=== PATIENT | male | born 1945 | race Caucasian/White ===

== ENCOUNTER 2017-06-01 12:52 | Inpatient (IN) | payer OTHER ==
[~2017-06-01] VITALS: Ht 177.8 cm; Wt 122.7 kg
--- NOTE | ~2017-06-01 | P ---
Formerly [facility] [place] [address] PROCEDURE REPORT Name: DIMAS SANCHES Room #: 203-P [facility] IN M.R.#: [id number] Admission: 06/01/17 Attend Phys: Larry Kimbrough MD, Discharge: 06/05/17 Date of : 41 Report #: [id number] THIS REPORT FOR: //name// CC: Larry Kimbrough MD [facility] Dat Ho MD BRIEF HISTORY: The patient is a 72-year-old male with evidence of upper GI bleeding and need for blood transfusions. He has been on Xarelto, but has been off for 48 hours. PREOPERATIVE DIAGNOSIS: Upper gastrointestinal bleeding, on Xarelto. POSTOPERATIVE DIAGNOSES: 1. Grade A esophagitis. 2. Mild diffuse gastritis without ulcer. 3. Small hiatus hernia. MEDICATIONS: Deep sedation with propofol per Anesthesia. SPECIMEN: 1. Small bowel biopsies to rule out celiac disease. 2. Biopsies of gastritis. ESTIMATED BLOOD LOSS: 3 mL. PROCEDURE: EGD with biopsy. FINDINGS: Prior to propofol sedation, procedure of upper endoscopy discussed with the patient with all potential risks and its complications. He indicates he understands and desires to proceed. DESCRIPTION OF PROCEDURE: With the patient in left lateral decubitus position, the Fuji video endoscope was inserted in the cervical esophagus under direct vision without difficulty. Examination of this organ through its entire length revealed normal esophageal mucosa down to the squamocolumnar junction. Squamocolumnar junction was inspected. It was intact. He was noted to have a moderate Schatzki ring, which was intermittently seen. He was also noted to have several erosions of squamocolumnar junction consistent with a grade A erosive esophagitis. There was no evidence of Jefferson mucosa. The scope was advanced into the stomach, which was examined on end view as well as retroflexed views. He had a diffuse gastritis. No ulcers or erosions were seen. There was no blood seen in the stomach. Active bleeding lesions were not seen. Potential sources of blood loss were not identified. Upon retroflexion, no mass lesions were seen. The pylorus was unremarkable. Duodenal bulb was unremarkable. Duodenal sweep down to the third portion was unremarkable. Multiple small bowel [address] [address] PROCEDURE REPORT Name: DIMAS SANCHES J Room #: 203-P DIS IN M.R.#: [id number] Admission: 06/01/17 Attend Phys: Larry Kimbrough MD, Discharge: 06/05/17 Date of : 41 Report #: [id number] biopsies were obtained to evaluate for celiac disease. At that point, scope was withdrawn and careful circumferential views confirmed the above finding. The patient tolerated the procedure well. Biopsies obtained of the gastritis. In addition, I might point out a trivial sliding type hiatus hernia was seen as well. DISPOSITION: Source of bleeding not identified. We will follow up on biopsies. Proceed with colonoscopy at this time. Actively bleeding lesions were not seen. Schatzki ring was identified. He was dilated with passage of 50-Swedish Pena dilator without difficulty. <ELECTRONICALLY SIGNED> By: Deon Hayes MD 06/07/17 1517 1313 0521 Deon Hayes MD /nt
--- NOTE | ~2017-06-01 | EKG ---
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: GR : [id number] Requested By: Larry Kimbrough Order Number: [id number] MD: Yordy Cruz Measurements Intervals [place] Rate: 77 P: 230 [place]: 195 QRS: 32 QRSD: 103 T: 21 QT: 429 QTc: 486 Interpretive Statements Atypical atrial flutter with a controlled ventricular response Abnormal R-wave progression, early transition Borderline prolonged QT interval Baseline wander in lead(s) V1 Compared to ECG 01/06/2009 12:00:24 Sinus rhythm and is no longer present Electronically Signed On 06-03-2017 8:25:11 CDT by Yordy Cruz [email or web address] <ELECTRONICALLY SIGNED> By: Yordy Cruz MD, [facility] 06/03/1725 9 9 Yordy Cruz MD, [facility] /EPI
--- NOTE | ~2017-06-01 | P ---
[facility] [place] [address] PROCEDURE REPORT Name: DIMAS SANCHES Room #: 203-P [facility] IN M.R.#: [id number] Admission: 06/01/17 Attend Phys: Larry Kimbrough MD, Discharge: 06/05/17 Date of : 41 Report #: [id number] THIS REPORT FOR: //name// CC: Larry Kimbrough MD [facility] Dat Ho MD BRIEF HISTORY: The patient is a 72-year-old male who presented with GI bleeding on Xarelto, which he takes for atrial fibrillation. There is also concern that he has coronary artery disease. PREOPERATIVE DIAGNOSIS: Gastrointestinal bleeding on Xarelto. POSTOPERATIVE DIAGNOSES: 1. Moderately severe left-sided diverticulosis coli. 2. Bleeding internal hemorrhoids. MEDICATIONS: Deep sedation with propofol per anesthesia. SPECIMEN: None. ESTIMATED BLOOD LOSS: None. PROCEDURE: Colonoscopy to cecum. FINDINGS: Prior to propofol sedation, procedure of colonoscopy discussed with the patient as well as potential risks and complications. He indicates he understands and desires to proceed. DESCRIPTION OF PROCEDURE: With the patient in the left lateral decubitus position, digital examination was completed which revealed no abnormalities. Subsequently, Ordoro video colonoscope was introduced in the rectum, advanced under direct vision to the cecum. It was done with minimal difficulty. The cecum was identified by the ileocecal valve and the appendiceal orifice. I could see the ileocecal valve and actually saw the ileocecal valve opened. There was some darkish material in the mouth of the ileocecal valve, but I could not deeply intubate the ileocecal valve because of looping of the scope. At that point, the scope was slowly withdrawn and careful circumferential views obtained. As we withdrew the scope, he was noted to have some blackish liquidish material in pools around the colon as well as coating the mucosa. We irrigated, flushed and suctioned as much as possible. Not all this material could be removed. Overall, reasonably a fairly good prep was obtained although there were some minor limitations about the colon. Within these limitations, no mucosal abnormalities were seen. No blood was seen. Again, the retained material was a very dark green to blackish in color. Bright red blood was not seen. No ulcers were seen. No inflammatory changes were seen. No neoplastic [address] [address] PROCEDURE REPORT Name: DIMAS SANCHES Room #: 203-P DIS IN M.R.#: [id number] Admission: 06/01/17 Attend Phys: Larry Kimbrough MD, Discharge: 06/05/17 Date of : 41 Report #: [id number] lesions were seen. Vascular ectasias were not seen within these limitations. As we withdrew the scope in the left colon in particular the sigmoid colon, there was fairly extensive sigmoid diverticular disease ____ endoscopic evidence of diverticulitis. No additional abnormalities were seen. The scope was withdrawn in the rectum and no abnormalities were seen. Upon retroflexion, moderate internal hemorrhoids were seen. The scope was withdrawn. The patient tolerated the procedure well. DISPOSITION: The patient with findings as noted above. An obvious bleeding lesion was not seen. The blackish color suggests a more proximal site, possibly the proximal colon or small bowel or upper GI tract. Please also see upper endoscopy report as well for details. At this point in time, we do not find evidence of active bleeding. If he has further bleeding, consider a nuclear medicine bleeding scan for further evaluation. <ELECTRONICALLY SIGNED> By: Deon Hayes MD 06/07/17 1517 1352 0453 Deon Hayes MD /nt
--- NOTE | ~2017-06-01 | H ---
[facility] [place] [address] HISTORY AND PHYSICAL Name: DIMAS SANCHES Room #: 203-P ADM IN M.R.#: [id number] Admission: 06/01/17 Attend Phys: Larry Kimbrough MD, Discharge: Date of : 41 Report #: [id number] THIS REPORT FOR: //name// CC: Larry Ho DATE OF SERVICE: 06/01/2017 HISTORY OF PRESENT ILLNESS: The patient is a 72-year-old male. He presented to the office with some recurrent weakness, some chest pain and pressure. He was supposed to have a stress test, but had been feeling poorly for the last couple of weeks with bilateral shoulder pain and chest pain. Also noted, he had some red bowel movements, bright red blood a month or so ago, but this resolved. However, the last week, he has been having some dark tarry stools and is on anticoagulation for atrial fibrillation. He comes in and he is quite pale appearing. He is not in distress, but does not feel well. The echo Doppler revealed an anteroseptal apical hypokinetic segment, which was mild and small, but this was a new finding. Moderate mitral and tricuspid regurgitation. The EF was in the 50% range. He has been compliant with medications. He has been on albuterol, amlodipine 5, baby aspirin, atorvastatin 40, gabapentin, glipizide 10, insulin, magnesium, levothyroxine, Bystolic 10, vitamin B6, Xarelto 20, which he did take this morning, Demadex 20, and WelChol 2 tablets twice a day. PAST MEDICAL HISTORY: Positive for the paroxysmal AFib, hypertension, hypercholesterolemia, COPD, renal cell carcinoma status post nephrectomy, remote stroke, hernia repair, thoracotomy and VATS for left thoracotomy wedge resection, tonsillectomy. SOCIAL HISTORY: Prior tobacco user. Two cans of beer a week. . He is retired. ALLERGIES: PHENOL AND IODINE. REVIEW OF SYSTEMS: Negative except for the progressive shortness of breath. PHYSICAL EXAMINATION: GENERAL: He is pale appearing, although not in distress. VITAL SIGNS: Blood pressure was 100/55, pulse is 80s. HEENT: Eyes reveal xanthelasmas. Pharynx is clear. NECK: Shows preserved upstrokes without JVD or bruits. LUNGS: Clear. CARDIOVASCULAR: Regular rate and rhythm, S1, S2. There is a holosystolic murmur at the apex. ABDOMEN: Slight tender in the epigastric. EXTREMITIES: Reveal no edema. Pulse is diminished. NEUROLOGIC: Nonfocal. [address] [address] HISTORY AND PHYSICAL Name: DIMAS SANCHES Room #: 203-P [facility] IN M.R.#: [id number] Admission: 06/01/17 Attend Phys: Larry Kimbrough MD, Discharge: Date of : 41 Report #: [id number] SKIN: Warm and dry without xanthoma or ulcer. MUSCULOSKELETAL: No gross joint deformity. ASSESSMENT: 1. Suspected anemia/gastrointestinal bleed with melenic stools. 2. Coronary artery disease with apparent new wall motion abnormality. 3. Mild ischemic cardiomyopathy, anteroapical septal hypokinetic segment, new. 4. Hypertension. 5. Diabetes. 6. Hypercholesterolemia. RECOMMENDATIONS AND PLAN: obviously holding the novel agent oral anticoagulant. GI consult. Telemetry, troponin and will follow. He is obviously transfusion if significantly anemic. He will be a direct admit to the CCU. Risks, benefits, alternatives discussed with the patient and his . <ELECTRONICALLY SIGNED> By: Larry Kimbrough MD, FACC 06/03/17 1305 12 2136 Larry Kimbrough MD, FACC /nt
[~2017-06-01 12:52] MED LIST: ALLOPURINOL 30300 M2 PO; ASA81BEC PO; BENICAR20 MG PO; BENICAR40 MG PO; BYSTOLIC 5 MG5 M1 PO; BYSTOLIC10 MG PO; CENTRUM SILVER1 EAC4 PO; COLACE100 MG PO; COUMADIN 5 MG TA5 M1 PO; HYDROCHLOROTHIA25 M2 PO; HYTRIN 5 M5 MG/1 CAP PO; LISINOPRIL20 MG PO; NIACIN 500 MG500 M1 PO; NIACIN500 MG PO; NORCO 5-325 TA1 EACH PO; PERCOCET PO; SINGULAIR 10 MG10 M1 PO; SPIRIVA INH; TERAZOSIN HCL10 MG PO; VENTOLIN HFA 1818 GM INH; WELCHOL 625 MG625 M1 PO; [UNRECOGNIZED DRUG - OTHER] PO
[2017-06-01 14:11] LABS: HEMATOCRIT 20.8 % (42.0-52.0); HEMOGLOBIN 6.8 gm/dL (14.0-18.0); MCH 32.6 pg (26.0-34.0); MCHC 32.9 g/dL (28.0-37.0); RBC 2.1 mil/uL (4.50-6.00); WBC 9.5 thou/uL (4.0-11.0)
[2017-06-01 14:25] LABS: CALCIUM 8.8 mg/dL (8.5-10.1); CREATININE 1.5 mg/dL (0.7-1.3); POTASSIUM 4.3 mmol/L (3.5-5.1)
[2017-06-01 14:31] LABS: ALBUMIN 2.9 g/dL (3.4-5.0); TOTAL BILIRUBIN 0.3 mg/dL (<0.1-1.0); TROPONIN-I 0.56 ng/mL (<0.06)
[2017-06-01 14:48] VITALS: BP 99/55
[2017-06-01 17:53] VITALS: BP 103/51; BP 98/60
[2017-06-01 19:41] VITALS: BP 100/55
[2017-06-01 21:06] VITALS: BP 103/51; BP 119/68; BP 121/57
[2017-06-02 00:16] VITALS: BP 119/68
[2017-06-02 02:38] LABS: HEMATOCRIT 26.4 % (42.0-52.0)
[2017-06-02 02:43] LABS: HEMOGLOBIN 8.9 gm/dL (14.0-18.0)
[2017-06-02 04:32] LABS: HEMATOCRIT 26.9 % (42.0-52.0)
[2017-06-02 05:16] VITALS: BP 119/70
[2017-06-02 08:15] VITALS: BP 120/68
[2017-06-02 16:20] LABS: HEMOGLOBIN 8.6 gm/dL (14.0-18.0)
[2017-06-02 16:33] LABS: INR 1.1; PROTIME 11.2 Seconds (9.3-11.4)
[2017-06-02 17:22] VITALS: BP 136/64
[2017-06-02 17:24] VITALS: BP 104/75
[2017-06-02 19:52] VITALS: BP 145/61
[2017-06-03 04:31] VITALS: BP 130/68
[2017-06-03 07:33] VITALS: BP 132/77
[2017-06-03 07:53] LABS: HEMATOCRIT 24.9 % (42.0-52.0); HEMOGLOBIN 8.4 gm/dL (14.0-18.0)
[2017-06-03 11:10] VITALS: BP 118/68
[2017-06-03 14:34] VITALS: BP 119/63
[2017-06-03 19:55] VITALS: BP 126/68
[2017-06-04 04:36] VITALS: BP 145/73
[2017-06-04 04:49] LABS: HEMATOCRIT 25.7 % (42.0-52.0); HEMOGLOBIN 8.6 gm/dL (14.0-18.0); MCH 32.5 pg (26.0-34.0); MCHC 33.5 g/dL (28.0-37.0); MCV 97.2 fL (80.0-100.0); RBC 2.65 mil/uL (4.50-6.00); RDW 16.4 % (10.5-14.5); WBC 9.1 thou/uL (4.0-11.0)
[2017-06-04 09:02] VITALS: BP 126/67
[2017-06-04 12:33] VITALS: BP 123/73
[2017-06-04 16:05] VITALS: BP 108/57
[2017-06-04 19:15] VITALS: BP 125/60
[2017-06-04 23:29] VITALS: BP 120/65
[2017-06-05 03:47] VITALS: BP 126/65
[2017-06-05 08:00] VITALS: BP 139/88
[2017-06-05 11:22] VITALS: BP 115/70
[2017-06-05 14:03] VITALS: BP 115/70
== END 2017-06-05 14:25 | disposition home or self-care (01) | DRG 281 ==
LOC: 2N 12:52
PROVIDERS: Internal Medicine Cardiovascular Disease; Internal Medicine Gastroenterology; Nurse Practitioner; Specialist
DX: I21.4 Non-ST elevation (NSTEMI) myocardial infarction (principal); K92.2 Gastrointestinal hemorrhage, unspecified; D64.9 Anemia, unspecified; I48.0 Paroxysmal atrial fibrillation; I10 Essential (primary) hypertension; K20.9 Esophagitis, unspecified; K44.9 Diaphragmatic hernia without obstruction or gangrene; K64.8 Other hemorrhoids; E78.00 Pure hypercholesterolemia, unspecified; K22.2 Esophageal obstruction; N40.0 Benign prostatic hyperplasia without lower urinary tract symptoms; K29.70 Gastritis, unspecified, without bleeding; K57.30 Diverticulosis of large intestine without perforation or abscess without bleeding; M10.9 Gout, unspecified; J44.9 Chronic obstructive pulmonary disease, unspecified; I25.10 Atherosclerotic heart disease of native coronary artery without angina pectoris; I25.5 Ischemic cardiomyopathy; E11.9 Type 2 diabetes mellitus without complications; E66.9 Obesity, unspecified; Z68.38 Body mass index [BMI] 38.0-38.9, adult; Z86.73 Personal history of transient ischemic attack (TIA), and cerebral infarction without residual deficits; Z87.891 Personal history of nicotine dependence; Z85.528 Personal history of other malignant neoplasm of kidney; Z85.118 Personal history of other malignant neoplasm of bronchus and lung; Z85.51 Personal history of malignant neoplasm of bladder; Z86.010 Personal history of colon polyps; Z90.5 Acquired absence of kidney; Z79.01 Long term (current) use of anticoagulants; Z79.899 Other long term (current) drug therapy; Z88.8 Allergy status to other drugs, medicaments and biological substances; Z91.041 Radiographic dye allergy status
CPT/HCPCS: 10081; 62110; 62900

== ENCOUNTER → 2017-12-14 | Outpatient (CLI) | payer OTHER | END | disposition home or self-care (01) | LOC: GI 06:33 | DX: D64.9 Anemia, unspecified (principal); I48.0 Paroxysmal atrial fibrillation; I10 Essential (primary) hypertension; E78.00 Pure hypercholesterolemia, unspecified; J44.9 Chronic obstructive pulmonary disease, unspecified; Z98.890 Other specified postprocedural states; Z79.899 Other long term (current) drug therapy; Z86.73 Personal history of transient ischemic attack (TIA), and cerebral infarction without residual deficits; Z79.891 Long term (current) use of opiate analgesic; Z79.82 Long term (current) use of aspirin; Z79.01 Long term (current) use of anticoagulants; Z91.041 Radiographic dye allergy status; Z87.891 Personal history of nicotine dependence; Z88.8 Allergy status to other drugs, medicaments and biological substances; Z85.528 Personal history of other malignant neoplasm of kidney; Z90.5 Acquired absence of kidney ==

== ENCOUNTER → 2019-10-29 | Outpatient (CLI) | payer OTHER | LOC: HYPER 13:52 | PROVIDERS: ATTEND Emergency Medicine | DX: E11.621 Type 2 diabetes mellitus with foot ulcer (principal); L97.512 Non-pressure chronic ulcer of other part of right foot with fat layer exposed; E11.21 Type 2 diabetes mellitus with diabetic nephropathy; E11.22 Type 2 diabetes mellitus with diabetic chronic kidney disease; I13.0 Hypertensive heart and chronic kidney disease with heart failure and stage 1 through stage 4 chronic kidney disease, or unspecified chronic kidney disease; N18.9 Chronic kidney disease, unspecified; I50.9 Heart failure, unspecified; E66.01 Morbid (severe) obesity due to excess calories; I48.91 Unspecified atrial fibrillation; I25.2 Old myocardial infarction; J43.9 Emphysema, unspecified; Z85.51 Personal history of malignant neoplasm of bladder; Z87.891 Personal history of nicotine dependence; Z68.38 Body mass index [BMI] 38.0-38.9, adult ==

== ENCOUNTER → 2019-11-07 | Outpatient (CLI) | payer OTHER | LOC: HYPER 13:28 | PROVIDERS: ATTEND Emergency Medicine | DX: E11.621 Type 2 diabetes mellitus with foot ulcer (principal); L97.512 Non-pressure chronic ulcer of other part of right foot with fat layer exposed; L84 Corns and callosities; E11.21 Type 2 diabetes mellitus with diabetic nephropathy; E11.22 Type 2 diabetes mellitus with diabetic chronic kidney disease; I13.0 Hypertensive heart and chronic kidney disease with heart failure and stage 1 through stage 4 chronic kidney disease, or unspecified chronic kidney disease; N18.9 Chronic kidney disease, unspecified; I50.9 Heart failure, unspecified; E66.01 Morbid (severe) obesity due to excess calories; I25.2 Old myocardial infarction; I48.91 Unspecified atrial fibrillation; J43.9 Emphysema, unspecified; Z87.891 Personal history of nicotine dependence; Z68.38 Body mass index [BMI] 38.0-38.9, adult; Z85.51 Personal history of malignant neoplasm of bladder ==

== ENCOUNTER → 2019-11-07 | Outpatient (CLI) | payer OTHER | LOC: SJCVCIMAG | PROVIDERS: ATTEND Internal Medicine Cardiovascular Disease | DX: I70.203 Unspecified atherosclerosis of native arteries of extremities, bilateral legs (principal); L97.818 Non-pressure chronic ulcer of other part of right lower leg with other specified severity; L97.828 Non-pressure chronic ulcer of other part of left lower leg with other specified severity; Z87.891 Personal history of nicotine dependence ==

== ENCOUNTER → 2019-11-14 | Outpatient (CLI) | payer OTHER ==
[~2019-11-14] VITALS: Ht 177.8 cm; Wt 125.2 kg
[~2019-11-14] MED LIST changes: +ALLOPURINOL 10100 M3 PO; +ELIQUIS5 MG PO; +LEVO-T100 MCG PO; +LIPITOR40 MG PO; +MAGNESIUM250 M1 PO; +NEURONTIN 300M300 M2 PO; +PROAIR HFA8.5 GM INH; +SILODOSIN8 MG PO; +STIOLTO RESPIMAT4 GM INH; +TORSEMIDE10 MG PO; +VALSARTAN320 MG PO; +WELCHOL 625 MG625 MG PO
[2019-11-14 07:36] VITALS: BP 168/78
[2019-11-14 07:46] LABS: HEMATOCRIT 38.6 % (42.0-52.0); HEMOGLOBIN 12.7 gm/dL (14.0-18.0); MCH 31.1 pg (26.0-34.0); MCV 94.3 fL (80.0-100.0); RBC 4.09 mil/uL (4.50-6.00); RDW 15.4 % (10.5-14.5)
[2019-11-14 08:12] LABS: CALCIUM 8.9 mg/dL (8.5-10.1); CREATININE 1.7 mg/dL (0.7-1.3); POTASSIUM 4.3 mmol/L (3.5-5.1)
== END | disposition home or self-care (01) ==
LOC: CATH 06:14
PROVIDERS: ATTEND Nuclear Medicine Nuclear Cardiology
DX: I70.238 Atherosclerosis of native arteries of right leg with ulceration of other part of lower leg (principal); L97.919 Non-pressure chronic ulcer of unspecified part of right lower leg with unspecified severity; I70.1 Atherosclerosis of renal artery; I10 Essential (primary) hypertension; E78.5 Hyperlipidemia, unspecified; I48.91 Unspecified atrial fibrillation; I25.2 Old myocardial infarction; G47.30 Sleep apnea, unspecified; J44.9 Chronic obstructive pulmonary disease, unspecified; Z87.891 Personal history of nicotine dependence; Z98.890 Other specified postprocedural states; Z79.899 Other long term (current) drug therapy; Z87.442 Personal history of urinary calculi; Z85.528 Personal history of other malignant neoplasm of kidney; Z85.51 Personal history of malignant neoplasm of bladder; Z90.5 Acquired absence of kidney; Z79.4 Long term (current) use of insulin; Z91.041 Radiographic dye allergy status; Z79.01 Long term (current) use of anticoagulants

== ENCOUNTER → 2019-11-22 | Outpatient (CLI) | payer OTHER | LOC: HYPER 14:01 | PROVIDERS: ATTEND Emergency Medicine | DX: T69.022D Immersion foot, left foot, subsequent encounter (principal); E11.621 Type 2 diabetes mellitus with foot ulcer; L97.512 Non-pressure chronic ulcer of other part of right foot with fat layer exposed; E11.42 Type 2 diabetes mellitus with diabetic polyneuropathy; L84 Corns and callosities; L50.0 Allergic urticaria; E11.22 Type 2 diabetes mellitus with diabetic chronic kidney disease; I13.0 Hypertensive heart and chronic kidney disease with heart failure and stage 1 through stage 4 chronic kidney disease, or unspecified chronic kidney disease; I50.9 Heart failure, unspecified; N18.9 Chronic kidney disease, unspecified; I48.91 Unspecified atrial fibrillation; J43.9 Emphysema, unspecified; I25.2 Old myocardial infarction; Z85.51 Personal history of malignant neoplasm of bladder; Z87.891 Personal history of nicotine dependence; X31.XXXD Exposure to excessive natural cold, subsequent encounter; Z79.01 Long term (current) use of anticoagulants ==

== ENCOUNTER → 2019-12-14 | Outpatient (CLI) | payer OTHER | LOC: SJCVCIMAG 07:30 | PROVIDERS: ATTEND Internal Medicine Cardiovascular Disease | DX: I08.8 Other rheumatic multiple valve diseases (principal); I11.9 Hypertensive heart disease without heart failure; I49.3 Ventricular premature depolarization; I25.10 Atherosclerotic heart disease of native coronary artery without angina pectoris; I48.0 Paroxysmal atrial fibrillation; Z87.891 Personal history of nicotine dependence ==

== ENCOUNTER → 2019-12-18 | Outpatient (CLI) | payer OTHER | LOC: HYPER 10:39 | PROVIDERS: ATTEND Emergency Medicine | DX: E11.621 Type 2 diabetes mellitus with foot ulcer (principal); L97.512 Non-pressure chronic ulcer of other part of right foot with fat layer exposed; L97.521 Non-pressure chronic ulcer of other part of left foot limited to breakdown of skin; E11.42 Type 2 diabetes mellitus with diabetic polyneuropathy; L84 Corns and callosities; E11.22 Type 2 diabetes mellitus with diabetic chronic kidney disease; I13.0 Hypertensive heart and chronic kidney disease with heart failure and stage 1 through stage 4 chronic kidney disease, or unspecified chronic kidney disease; I50.9 Heart failure, unspecified; N18.9 Chronic kidney disease, unspecified; I48.91 Unspecified atrial fibrillation; J43.9 Emphysema, unspecified; I25.2 Old myocardial infarction; Z85.51 Personal history of malignant neoplasm of bladder; Z87.891 Personal history of nicotine dependence; Z79.01 Long term (current) use of anticoagulants; Z79.82 Long term (current) use of aspirin ==

== ENCOUNTER → 2019-12-28 | Outpatient (CLI) | payer OTHER | LOC: RAD 14:18 | PROVIDERS: ATTEND Emergency Medicine | DX: L97.512 Non-pressure chronic ulcer of other part of right foot with fat layer exposed (principal) ==

== ENCOUNTER → 2020-01-01 | Outpatient (CLI) | payer OTHER | LOC: HYPER 10:59 | PROVIDERS: ATTEND Emergency Medicine | DX: E11.621 Type 2 diabetes mellitus with foot ulcer (principal); L97.512 Non-pressure chronic ulcer of other part of right foot with fat layer exposed; S80.821A Blister (nonthermal), right lower leg, initial encounter; E11.40 Type 2 diabetes mellitus with diabetic neuropathy, unspecified; E11.22 Type 2 diabetes mellitus with diabetic chronic kidney disease; I13.0 Hypertensive heart and chronic kidney disease with heart failure and stage 1 through stage 4 chronic kidney disease, or unspecified chronic kidney disease; I50.9 Heart failure, unspecified; N18.9 Chronic kidney disease, unspecified; J43.9 Emphysema, unspecified; L84 Corns and callosities; I25.2 Old myocardial infarction; R60.9 Edema, unspecified; I48.91 Unspecified atrial fibrillation; Z85.51 Personal history of malignant neoplasm of bladder; Z87.891 Personal history of nicotine dependence; Z79.01 Long term (current) use of anticoagulants; Z79.82 Long term (current) use of aspirin; X58.XXXA Exposure to other specified factors, initial encounter; Y93.89 Activity, other specified; Y92.89 Other specified places as the place of occurrence of the external cause; Y99.8 Other external cause status ==

== ENCOUNTER → 2020-01-08 | Outpatient (CLI) | payer OTHER | LOC: HYPER 10:53 | PROVIDERS: ATTEND Emergency Medicine | DX: E11.621 Type 2 diabetes mellitus with foot ulcer (principal); L97.512 Non-pressure chronic ulcer of other part of right foot with fat layer exposed; S80.821D Blister (nonthermal), right lower leg, subsequent encounter; L84 Corns and callosities; E11.40 Type 2 diabetes mellitus with diabetic neuropathy, unspecified; E11.21 Type 2 diabetes mellitus with diabetic nephropathy; E11.22 Type 2 diabetes mellitus with diabetic chronic kidney disease; I13.0 Hypertensive heart and chronic kidney disease with heart failure and stage 1 through stage 4 chronic kidney disease, or unspecified chronic kidney disease; I50.9 Heart failure, unspecified; N18.9 Chronic kidney disease, unspecified; E66.01 Morbid (severe) obesity due to excess calories; J43.9 Emphysema, unspecified; I25.2 Old myocardial infarction; R60.9 Edema, unspecified; I48.91 Unspecified atrial fibrillation; Z85.51 Personal history of malignant neoplasm of bladder; Z87.891 Personal history of nicotine dependence; Z68.38 Body mass index [BMI] 38.0-38.9, adult; X58.XXXD Exposure to other specified factors, subsequent encounter ==

== ENCOUNTER → 2020-01-17 | Outpatient (CLI) | payer OTHER | LOC: SJCVCIMAG 08:08 | PROVIDERS: ATTEND Nuclear Medicine Nuclear Cardiology | DX: I65.23 Occlusion and stenosis of bilateral carotid arteries (principal); I70.202 Unspecified atherosclerosis of native arteries of extremities, left leg; Z87.891 Personal history of nicotine dependence ==

== ENCOUNTER → 2020-01-22 | Outpatient (CLI) | payer OTHER | LOC: HYPER 10:55 | PROVIDERS: ATTEND Emergency Medicine | DX: E11.621 Type 2 diabetes mellitus with foot ulcer (principal); L97.512 Non-pressure chronic ulcer of other part of right foot with fat layer exposed; S80.821D Blister (nonthermal), right lower leg, subsequent encounter; E11.42 Type 2 diabetes mellitus with diabetic polyneuropathy; L84 Corns and callosities; R60.9 Edema, unspecified; I48.91 Unspecified atrial fibrillation; E11.22 Type 2 diabetes mellitus with diabetic chronic kidney disease; I13.0 Hypertensive heart and chronic kidney disease with heart failure and stage 1 through stage 4 chronic kidney disease, or unspecified chronic kidney disease; I50.9 Heart failure, unspecified; N18.9 Chronic kidney disease, unspecified; J43.9 Emphysema, unspecified; I25.2 Old myocardial infarction; Z85.51 Personal history of malignant neoplasm of bladder; Z87.891 Personal history of nicotine dependence; Z79.82 Long term (current) use of aspirin; Z79.01 Long term (current) use of anticoagulants; X58.XXXD Exposure to other specified factors, subsequent encounter ==

== ENCOUNTER → 2020-02-19 | Outpatient (CLI) | payer OTHER | LOC: HYPER 10:54 | PROVIDERS: ATTEND Emergency Medicine | DX: E11.621 Type 2 diabetes mellitus with foot ulcer (principal); L97.512 Non-pressure chronic ulcer of other part of right foot with fat layer exposed; S80.821D Blister (nonthermal), right lower leg, subsequent encounter; L84 Corns and callosities; E11.42 Type 2 diabetes mellitus with diabetic polyneuropathy; E11.22 Type 2 diabetes mellitus with diabetic chronic kidney disease; I13.0 Hypertensive heart and chronic kidney disease with heart failure and stage 1 through stage 4 chronic kidney disease, or unspecified chronic kidney disease; I50.9 Heart failure, unspecified; N18.9 Chronic kidney disease, unspecified; E11.21 Type 2 diabetes mellitus with diabetic nephropathy; E66.01 Morbid (severe) obesity due to excess calories; R60.9 Edema, unspecified; I48.91 Unspecified atrial fibrillation; I87.2 Venous insufficiency (chronic) (peripheral); I25.2 Old myocardial infarction; J43.9 Emphysema, unspecified; Z85.51 Personal history of malignant neoplasm of bladder; Z68.38 Body mass index [BMI] 38.0-38.9, adult; Z87.891 Personal history of nicotine dependence; Z79.82 Long term (current) use of aspirin; Z79.01 Long term (current) use of anticoagulants; X58.XXXD Exposure to other specified factors, subsequent encounter ==

== ENCOUNTER → 2020-03-19 | Outpatient (CLI) | payer OTHER | LOC: HYPER 10:41 | PROVIDERS: ATTEND Emergency Medicine | DX: E11.621 Type 2 diabetes mellitus with foot ulcer (principal); L97.512 Non-pressure chronic ulcer of other part of right foot with fat layer exposed; S80.821D Blister (nonthermal), right lower leg, subsequent encounter; L84 Corns and callosities; E11.42 Type 2 diabetes mellitus with diabetic polyneuropathy; E11.22 Type 2 diabetes mellitus with diabetic chronic kidney disease; I13.0 Hypertensive heart and chronic kidney disease with heart failure and stage 1 through stage 4 chronic kidney disease, or unspecified chronic kidney disease; I50.9 Heart failure, unspecified; N18.9 Chronic kidney disease, unspecified; E11.21 Type 2 diabetes mellitus with diabetic nephropathy; E66.01 Morbid (severe) obesity due to excess calories; R60.9 Edema, unspecified; I48.91 Unspecified atrial fibrillation; I87.2 Venous insufficiency (chronic) (peripheral); I25.2 Old myocardial infarction; J43.9 Emphysema, unspecified; Z85.51 Personal history of malignant neoplasm of bladder; Z68.38 Body mass index [BMI] 38.0-38.9, adult; Z87.891 Personal history of nicotine dependence; Z79.82 Long term (current) use of aspirin; Z79.01 Long term (current) use of anticoagulants; X58.XXXD Exposure to other specified factors, subsequent encounter ==

== ENCOUNTER → 2020-04-17 | Outpatient (CLI) | payer OTHER | LOC: HYPER 10:56 | PROVIDERS: ATTEND Emergency Medicine | DX: E11.621 Type 2 diabetes mellitus with foot ulcer (principal); L97.512 Non-pressure chronic ulcer of other part of right foot with fat layer exposed; S80.821D Blister (nonthermal), right lower leg, subsequent encounter; I87.2 Venous insufficiency (chronic) (peripheral); E11.40 Type 2 diabetes mellitus with diabetic neuropathy, unspecified; L84 Corns and callosities; R60.9 Edema, unspecified; I48.91 Unspecified atrial fibrillation; E11.22 Type 2 diabetes mellitus with diabetic chronic kidney disease; I13.0 Hypertensive heart and chronic kidney disease with heart failure and stage 1 through stage 4 chronic kidney disease, or unspecified chronic kidney disease; I50.9 Heart failure, unspecified; N18.9 Chronic kidney disease, unspecified; I25.2 Old myocardial infarction; J43.9 Emphysema, unspecified; E66.9 Obesity, unspecified; Z68.38 Body mass index [BMI] 38.0-38.9, adult; Z87.891 Personal history of nicotine dependence; Z85.51 Personal history of malignant neoplasm of bladder; Z79.82 Long term (current) use of aspirin; Z79.01 Long term (current) use of anticoagulants; X58.XXXD Exposure to other specified factors, subsequent encounter ==

== ENCOUNTER → 2020-05-15 | Outpatient (CLI) | payer OTHER | LOC: HYPER 09:09 | PROVIDERS: ATTEND Emergency Medicine | DX: E11.621 Type 2 diabetes mellitus with foot ulcer (principal); L97.512 Non-pressure chronic ulcer of other part of right foot with fat layer exposed; S80.821D Blister (nonthermal), right lower leg, subsequent encounter; I87.2 Venous insufficiency (chronic) (peripheral); L84 Corns and callosities; E11.40 Type 2 diabetes mellitus with diabetic neuropathy, unspecified; R60.9 Edema, unspecified; I48.91 Unspecified atrial fibrillation; E11.22 Type 2 diabetes mellitus with diabetic chronic kidney disease; I13.0 Hypertensive heart and chronic kidney disease with heart failure and stage 1 through stage 4 chronic kidney disease, or unspecified chronic kidney disease; I50.9 Heart failure, unspecified; N18.9 Chronic kidney disease, unspecified; E11.21 Type 2 diabetes mellitus with diabetic nephropathy; I25.2 Old myocardial infarction; J43.9 Emphysema, unspecified; E66.01 Morbid (severe) obesity due to excess calories; Z68.38 Body mass index [BMI] 38.0-38.9, adult; Z87.891 Personal history of nicotine dependence; Z85.51 Personal history of malignant neoplasm of bladder; Z79.82 Long term (current) use of aspirin; Z79.01 Long term (current) use of anticoagulants; X58.XXXD Exposure to other specified factors, subsequent encounter ==

== ENCOUNTER → 2020-06-17 | Outpatient (CLI) | payer OTHER | LOC: HYPER 08:51 | PROVIDERS: ATTEND Emergency Medicine | DX: E11.621 Type 2 diabetes mellitus with foot ulcer (principal); L97.512 Non-pressure chronic ulcer of other part of right foot with fat layer exposed; S81.811A Laceration without foreign body, right lower leg, initial encounter; S80.821D Blister (nonthermal), right lower leg, subsequent encounter; L84 Corns and callosities; I87.2 Venous insufficiency (chronic) (peripheral); E11.40 Type 2 diabetes mellitus with diabetic neuropathy, unspecified; R60.9 Edema, unspecified; I48.91 Unspecified atrial fibrillation; E11.22 Type 2 diabetes mellitus with diabetic chronic kidney disease; I13.0 Hypertensive heart and chronic kidney disease with heart failure and stage 1 through stage 4 chronic kidney disease, or unspecified chronic kidney disease; I50.9 Heart failure, unspecified; N18.9 Chronic kidney disease, unspecified; E11.21 Type 2 diabetes mellitus with diabetic nephropathy; I25.2 Old myocardial infarction; J43.9 Emphysema, unspecified; E66.01 Morbid (severe) obesity due to excess calories; Z68.38 Body mass index [BMI] 38.0-38.9, adult; Z87.891 Personal history of nicotine dependence; Z85.51 Personal history of malignant neoplasm of bladder; X58.XXXD Exposure to other specified factors, subsequent encounter; X58.XXXA Exposure to other specified factors, initial encounter; Y93.89 Activity, other specified; Y92.89 Other specified places as the place of occurrence of the external cause; Y99.8 Other external cause status ==

== ENCOUNTER → 2020-07-08 | Outpatient (CLI) | payer OTHER | LOC: SJCVCIMAG 09:06 | PROVIDERS: ATTEND Nuclear Medicine Nuclear Cardiology | DX: I70.202 Unspecified atherosclerosis of native arteries of extremities, left leg (principal) ==

== ENCOUNTER → 2020-07-16 | Outpatient (CLI) | payer OTHER | LOC: HYPER 08:02 | PROVIDERS: ATTEND Emergency Medicine | DX: E11.621 Type 2 diabetes mellitus with foot ulcer (principal); L97.512 Non-pressure chronic ulcer of other part of right foot with fat layer exposed; S80.821D Blister (nonthermal), right lower leg, subsequent encounter; L84 Corns and callosities; I87.2 Venous insufficiency (chronic) (peripheral); E11.40 Type 2 diabetes mellitus with diabetic neuropathy, unspecified; R60.9 Edema, unspecified; I48.91 Unspecified atrial fibrillation; E11.22 Type 2 diabetes mellitus with diabetic chronic kidney disease; I13.0 Hypertensive heart and chronic kidney disease with heart failure and stage 1 through stage 4 chronic kidney disease, or unspecified chronic kidney disease; I50.9 Heart failure, unspecified; N18.9 Chronic kidney disease, unspecified; E11.21 Type 2 diabetes mellitus with diabetic nephropathy; I25.2 Old myocardial infarction; J43.9 Emphysema, unspecified; E66.01 Morbid (severe) obesity due to excess calories; Z68.38 Body mass index [BMI] 38.0-38.9, adult; Z87.891 Personal history of nicotine dependence; Z85.51 Personal history of malignant neoplasm of bladder; X58.XXXD Exposure to other specified factors, subsequent encounter ==

== ENCOUNTER → 2020-08-13 | Outpatient (CLI) | payer OTHER | LOC: HYPER 08:10 | PROVIDERS: ATTEND Emergency Medicine | DX: E11.621 Type 2 diabetes mellitus with foot ulcer (principal); L97.512 Non-pressure chronic ulcer of other part of right foot with fat layer exposed; S80.821D Blister (nonthermal), right lower leg, subsequent encounter; L84 Corns and callosities; I87.2 Venous insufficiency (chronic) (peripheral); E11.40 Type 2 diabetes mellitus with diabetic neuropathy, unspecified; R60.9 Edema, unspecified; I48.91 Unspecified atrial fibrillation; E11.22 Type 2 diabetes mellitus with diabetic chronic kidney disease; I13.0 Hypertensive heart and chronic kidney disease with heart failure and stage 1 through stage 4 chronic kidney disease, or unspecified chronic kidney disease; I50.9 Heart failure, unspecified; N18.9 Chronic kidney disease, unspecified; E11.21 Type 2 diabetes mellitus with diabetic nephropathy; I25.2 Old myocardial infarction; J43.9 Emphysema, unspecified; E66.01 Morbid (severe) obesity due to excess calories; Z68.38 Body mass index [BMI] 38.0-38.9, adult; Z87.891 Personal history of nicotine dependence; Z85.51 Personal history of malignant neoplasm of bladder; X58.XXXD Exposure to other specified factors, subsequent encounter ==

== ENCOUNTER → 2020-08-21 | Outpatient (CLI) | payer OTHER | LOC: HYPER 09:03 | PROVIDERS: ATTEND Emergency Medicine | DX: E11.621 Type 2 diabetes mellitus with foot ulcer (principal); L97.512 Non-pressure chronic ulcer of other part of right foot with fat layer exposed; S80.821D Blister (nonthermal), right lower leg, subsequent encounter; L84 Corns and callosities; I87.2 Venous insufficiency (chronic) (peripheral); E11.40 Type 2 diabetes mellitus with diabetic neuropathy, unspecified; R60.9 Edema, unspecified; I48.91 Unspecified atrial fibrillation; E11.22 Type 2 diabetes mellitus with diabetic chronic kidney disease; I13.0 Hypertensive heart and chronic kidney disease with heart failure and stage 1 through stage 4 chronic kidney disease, or unspecified chronic kidney disease; I50.9 Heart failure, unspecified; N18.9 Chronic kidney disease, unspecified; E11.21 Type 2 diabetes mellitus with diabetic nephropathy; I25.2 Old myocardial infarction; J43.9 Emphysema, unspecified; E66.01 Morbid (severe) obesity due to excess calories; Z68.38 Body mass index [BMI] 38.0-38.9, adult; Z87.891 Personal history of nicotine dependence; Z85.51 Personal history of malignant neoplasm of bladder; X58.XXXD Exposure to other specified factors, subsequent encounter ==

== ENCOUNTER → 2020-09-10 | Outpatient (CLI) | payer OTHER | LOC: HYPER 08:07 | PROVIDERS: ATTEND Emergency Medicine | DX: E11.621 Type 2 diabetes mellitus with foot ulcer (principal); L97.512 Non-pressure chronic ulcer of other part of right foot with fat layer exposed; S80.821D Blister (nonthermal), right lower leg, subsequent encounter; L84 Corns and callosities; I87.2 Venous insufficiency (chronic) (peripheral); E11.40 Type 2 diabetes mellitus with diabetic neuropathy, unspecified; R60.9 Edema, unspecified; I48.91 Unspecified atrial fibrillation; E11.22 Type 2 diabetes mellitus with diabetic chronic kidney disease; I13.0 Hypertensive heart and chronic kidney disease with heart failure and stage 1 through stage 4 chronic kidney disease, or unspecified chronic kidney disease; I50.9 Heart failure, unspecified; N18.9 Chronic kidney disease, unspecified; E11.21 Type 2 diabetes mellitus with diabetic nephropathy; I25.2 Old myocardial infarction; J43.9 Emphysema, unspecified; E66.01 Morbid (severe) obesity due to excess calories; Z68.38 Body mass index [BMI] 38.0-38.9, adult; Z87.891 Personal history of nicotine dependence; Z85.51 Personal history of malignant neoplasm of bladder; X58.XXXD Exposure to other specified factors, subsequent encounter ==

== ENCOUNTER → 2020-10-08 | Outpatient (CLI) | payer OTHER | LOC: HYPER 08:12 | PROVIDERS: ATTEND Emergency Medicine | DX: E11.621 Type 2 diabetes mellitus with foot ulcer (principal); L97.512 Non-pressure chronic ulcer of other part of right foot with fat layer exposed; S80.821D Blister (nonthermal), right lower leg, subsequent encounter; L84 Corns and callosities; I87.2 Venous insufficiency (chronic) (peripheral); E11.40 Type 2 diabetes mellitus with diabetic neuropathy, unspecified; R60.9 Edema, unspecified; I48.91 Unspecified atrial fibrillation; E11.22 Type 2 diabetes mellitus with diabetic chronic kidney disease; I13.0 Hypertensive heart and chronic kidney disease with heart failure and stage 1 through stage 4 chronic kidney disease, or unspecified chronic kidney disease; I50.9 Heart failure, unspecified; N18.9 Chronic kidney disease, unspecified; E11.21 Type 2 diabetes mellitus with diabetic nephropathy; I25.2 Old myocardial infarction; J43.9 Emphysema, unspecified; E66.01 Morbid (severe) obesity due to excess calories; Z68.38 Body mass index [BMI] 38.0-38.9, adult; Z87.891 Personal history of nicotine dependence; Z85.51 Personal history of malignant neoplasm of bladder; X58.XXXD Exposure to other specified factors, subsequent encounter ==